=== PATIENT | male | born 1950 | race Caucasian/White ===

== ENCOUNTER 2019-02-03 10:13 | Inpatient (IN) | payer SELFPAY ==
[~2019-02-03] VITALS: Ht 167.6 cm; Wt 49.0 kg
[2019-02-03 11:25] LABS: CLARITY URINE CLOUDY (CLEAR); COLOR URINE YELLOW (YELLOW); KETONES URINE NEGATIVE (NEGATIVE); LEUKOCYTE ESTERASE URINE TRACE (NEGATIVE); NITRITE URINE NEGATIVE (NEGATIVE); OCCULT BLOOD URINE 3+ (NEGATIVE); PROTEIN URINE 3+ (NEGATIVE); SPECIFIC GRAVITY URINE 1.015 (1.005-1.030); UROBILINOGEN URINE 0.2 E.U./dL (0.2-1.0)
[2019-02-03 11:30] LABS: BG BASE EXCESS -7.5 mmol/L (-2.0-2.0); BG CARBOXYHEMOGLOBIN 0.3 % (0.5-1.5); BG DEOXYHEMOGLOBIN 3.9 % (0.0-5.0); BG FRACTION INSPIRED OXYGEN 21; BG METHEMOGLOBIN 0.3 % (0.0-1.5); BG OXYGEN SATURATION 96.1 % (92.0-98.5); BG OXYHEMOGLOBIN 95.5 % (94.0-97.0); BG PCO2 25.3 mmHg (35.0-45.0); BG PH 7.418 (7.350-7.450); BG PO2 89.5 mmHg (75.0-100.0); BG SAMPLE SITE RIGHT BRACHIAL; BG TOTAL HEMOGLOBIN 8.2 g/dL (12.0-18.0); BG VENT MODE ROOM AIR
[2019-02-03 11:32] LABS: BASOPHILS % 1.3 % (0.0-2.0); EOSINOPHILS % 0.9 % (0.0-5.0); HEMATOCRIT. 21.9 % (42.0-52.0); HEMOGLOBIN. 7.4 g/dL (14.0-18.0); LYMPHOCYTES % 12.4 % (20.0-50.0); MEAN CORPUSCULAR HEMOGLOBIN 32.5 pg (28.0-32.0); MEAN CORPUSCULAR VOLUME 95.9 fL (80.0-94.0); MONOCYTES % 7.2 % (2.0-8.0); NEUTROPHILS % 78.2 % (40.0-76.0); PLATELET 206 x1000/uL (130-400); RED BLOOD CELL COUNT 2.28 mill/uL (4.7-6.1); RED CELL DISTRIBUTION WIDTH 15.1 % (11.6-14.6)
[2019-02-03 11:39] LABS: CHLORIDE 110 mEq/L (98-107)
[2019-02-03 11:43] LABS: ETHANOL BLOOD < 10 mg/dL
[2019-02-03 11:48] LABS: CREATINE KINASE 59 IU/L (39-308)
[2019-02-03 12:09] LABS: OPIATES URINE SCREEN NEGATIVE (NEGATIVE); PHENCYCLIDINE URINE SCREEN NEGATIVE (NEGATIVE)
[2019-02-03 12:10] LABS: *AMPHETAMINES SCREEN URINE NEGATIVE (NEGATIVE); *BARBITURATES SCREEN URINE NEGATIVE (NEGATIVE); *COCAINE SCREEN URINE NEGATIVE (NEGATIVE); CANNABINOID URINE SCREEN NEGATIVE (NEGATIVE); METHADONE URINE SCREEN NEGATIVE (NEGATIVE)
[2019-02-03 12:12] LABS: *BENZODIAZEPINES SCREEN URINE NEGATIVE (NEGATIVE)
[2019-02-03] MEDS ORDERED: NA PHOS,M-B/NA PHOS,DI-BA ENEMA 118ML PR PRN (13:45)
[2019-02-03] MEDS ORDERED: IPRATROPIUM/ALBUTEROL 0.5-3(2.5)MG/3ML NEB INH PRN (13:45)
[2019-02-03] MEDS ORDERED: LORAZEPAM 2MG/ML CPJ IV PRN (13:45)
[2019-02-03] MEDS ORDERED: HYDROCODONE/ACETAMINOPHEN 5/325MG TABLET PO PRN (13:45)
[2019-02-03] MEDS ORDERED: GUAIFENESIN 200MG/10ML SUGAR FREE UDC PO PRN (13:45)
[2019-02-03] MEDS ORDERED: CLONIDINE 0.1MG TABLET PO PRN (13:45)
[2019-02-03] MEDS ORDERED: DIPHENHYDRAMINE 50MG/ML VIAL IV PRN (13:45)
[2019-02-03] MEDS ORDERED: MORPHINE SULFATE 2 MG/ML CPJ (NOT FOR IM USE) IV PRN (13:45)
[2019-02-03] MEDS ORDERED: ACETAMINOPHEN 325MG TABLET PO PRN (13:45)
[2019-02-03] MEDS ORDERED: ONDANSETRON HCL 4MG/2ML INJ IV PRN (13:45)
[2019-02-03 14:00] VITALS: BP 185/76
[2019-02-03 16:00] VITALS: BP 173/99
[2019-02-03] MEDS ORDERED: MAGNESIUM/ALUMINUM HYDROXIDE/SIMETHICONE 30ML UDC PO PRN (16:00)
[2019-02-03] MEDS ORDERED: DOCUSATE SODIUM 100MG CAPSULE PO PRN (17:00)
[2019-02-03] MEDS ORDERED: FUROSEMIDE 40MG/4ML VIAL IV SCH (17:15)
[2019-02-03] MEDS: FUROSEMIDE 40MG/4ML VIAL IVP SCH (17:45)
[2019-02-03] MEDS: POTASSIUM CHLORIDE 20MEQ TABLET SR PO SCH (17:56)
[2019-02-03] MEDS: AMLODIPINE 5MG TABLET PO SCH (17:57)
[2019-02-03 20:00] VITALS: BP 142/87
[2019-02-04] VITALS: BP 127/83
[2019-02-04 04:00] VITALS: BP 122/86
[2019-02-04 07:06] LABS: EOSINOPHILS % 2.6 % (0.0-5.0); HEMATOCRIT. 22.3 % (42.0-52.0); HEMOGLOBIN. 7.4 g/dL (14.0-18.0); LYMPHOCYTES % 14.2 % (20.0-50.0); MEAN CORPUSCULAR HEMOGLOBIN 32.5 pg (28.0-32.0); MEAN CORPUSCULAR VOLUME 97.5 fL (80.0-94.0); MEAN PLATELET VOLUME 8.8 fl (7.4-10.4); MONOCYTES % 8.6 % (2.0-8.0); NEUTROPHILS % 73.6 % (40.0-76.0); PLATELET 213 x1000/uL (130-400); RED BLOOD CELL COUNT 2.29 mill/uL (4.7-6.1); RED CELL DISTRIBUTION WIDTH 14.7 % (11.6-14.6)
[2019-02-04 07:40] LABS: CHLORIDE 110 mEq/L (98-107)
[2019-02-04 07:52] LABS: LDL CHOLESTEROL 85 mg/dL (5-100)
[2019-02-04 07:55] LABS: HDL CHOLESTEROL 40 mg/dL (40-59); T4 FREE 0.96 ng/dL (0.76-1.46)
[2019-02-04 08:00] VITALS: BP 153/85
[2019-02-04] MEDS: AMLODIPINE 5MG TABLET PO SCH (09:21)
[2019-02-04] MEDS: FUROSEMIDE 40MG/4ML VIAL IVP SCH (09:22)
[2019-02-04] MEDS: POTASSIUM CHLORIDE 20MEQ TABLET SR PO SCH (09:22)
[2019-02-04 12:00] VITALS: BP 116/59
[2019-02-04 13:22] LABS: HEPATITIS B SURFACE ANTIGEN NEGATIVE
[2019-02-04 16:00] VITALS: BP 128/67
[2019-02-04 19:45] VITALS: BP 141/76
[2019-02-05] VITALS (9 sets, daily range): BP systolic 123–141; BP diastolic 62–88
[2019-02-05 06:12] LABS: BASOPHILS % 1.1 % (0.0-2.0); EOSINOPHILS % 2.9 % (0.0-5.0); LYMPHOCYTES % 14.8 % (20.0-50.0); MEAN CORPUSCULAR HEMOGLOBIN 32.2 pg (28.0-32.0); MEAN CORPUSCULAR VOLUME 96.4 fL (80.0-94.0); MEAN PLATELET VOLUME 8.5 fl (7.4-10.4); MONOCYTES % 8.5 % (2.0-8.0); NEUTROPHILS % 72.7 % (40.0-76.0); PLATELET 183 x1000/uL (130-400); RED BLOOD CELL COUNT 2.17 mill/uL (4.7-6.1); RED CELL DISTRIBUTION WIDTH 14.8 % (11.6-14.6)
[2019-02-05 06:23] LABS: HEMATOCRIT. 20.9 % (42.0-52.0)
[2019-02-05] MEDS: POTASSIUM CHLORIDE 20MEQ TABLET SR PO SCH (09:24)
[2019-02-05] MEDS: FUROSEMIDE 40MG/4ML VIAL IVP SCH (09:24)
[2019-02-05] MEDS: AMLODIPINE 5MG TABLET PO SCH (09:33)
[2019-02-05] MEDS: CITRIC ACID/SODIUM CITRATE SOLN 30ML UDC PO SCH (16:57)
[2019-02-05 21:30] LABS: HEMATOCRIT 23.4 % (42.0-52.0); HEMOGLOBIN 8.1 g/dL (14.0-18.0)
[2019-02-06] VITALS: BP 133/66
[2019-02-06 04:00] VITALS: BP 136/67
[2019-02-06 07:38] LABS: BASOPHILS % 1.1 % (0.0-2.0); EOSINOPHILS % 1.7 % (0.0-5.0); HEMATOCRIT. 23.4 % (42.0-52.0); LYMPHOCYTES % 14.5 % (20.0-50.0); MEAN CORPUSCULAR HEMOGLOBIN 31.8 pg (28.0-32.0); MEAN CORPUSCULAR VOLUME 93.6 fL (80.0-94.0); MONOCYTES % 10.9 % (2.0-8.0); NEUTROPHILS % 71.8 % (40.0-76.0); PLATELET 193 x1000/uL (130-400); RED CELL DISTRIBUTION WIDTH 16.5 % (11.6-14.6)
[2019-02-06 08:00] VITALS: BP 101/83
[2019-02-06 12:00] VITALS: BP_SYST 136; BP_SYST 147; BP_DIAS 72; BP_DIAS 85
[2019-02-06] MEDS: AMLODIPINE 5MG TABLET PO SCH (13:25)
[2019-02-06] MEDS: FUROSEMIDE 40MG/4ML VIAL IVP SCH (13:25)
[2019-02-06] MEDS: POTASSIUM CHLORIDE 20MEQ TABLET SR PO SCH (13:26)
[2019-02-06] MEDS: CITRIC ACID/SODIUM CITRATE SOLN 30ML UDC PO SCH ×2 (13:36→17:58)
[2019-02-06 16:00] VITALS: BP 153/92
[2019-02-06 20:00] VITALS: BP 133/105
[2019-02-07] VITALS: BP 121/64
[2019-02-07 04:00] VITALS: BP 130/68
[2019-02-07 07:18] LABS: A/G RATIO 0.8 (0.7-1.7); ALPHA-1-GLOBULIN 0.3 g/dL (0.0-0.4); ALPHA-2-GLOBULIN 0.9 g/dL (0.4-1.0); BETA GLOBULIN 1.1 g/dL (0.7-1.3); GAMMA GLOBULINS 1.8 g/dL (0.4-1.8); M-SPIKE Not Observed g/dL (Not Observed)
[2019-02-07 08:00] VITALS: BP 154/88
[2019-02-07] MEDS: POTASSIUM CHLORIDE 20MEQ TABLET SR PO SCH (08:00)
[2019-02-07] MEDS: FUROSEMIDE 40MG/4ML VIAL IVP SCH (08:00)
[2019-02-07] MEDS: AMLODIPINE 5MG TABLET PO SCH (08:00)
[2019-02-07] MEDS: CITRIC ACID/SODIUM CITRATE SOLN 30ML UDC PO SCH (08:17)
[2019-02-07 09:06] LABS: COMPLEMENT C3 107 mg/dL (82-167)
[2019-02-07 12:00] VITALS: BP 154/81
[2019-02-07 14:23] VITALS: BP 154/81
[2019-02-07 17:11] LABS: ANTI-NUCLEAR ANTIBODIES DIRECT Negative (Negative)
== END 2019-02-07 16:01 | disposition home or self-care (01) | DRG 194 ==
LOC: ER 10:13 → 7WST 12:46 → ENRESERV 13:05
PROVIDERS: ADMIT Internal Medicine; ATTEND Internal Medicine
PROC: 30233N1 Transfusion of Nonautologous Red Blood Cells into Peripheral Vein, Percutaneous Approach (ICD-10-PCS; principal; 2019-02-05)
DX: I13.0 Hypertensive heart and chronic kidney disease with heart failure and stage 1 through stage 4 chronic kidney disease, or unspecified chronic kidney disease (principal); N17.9 Acute kidney failure, unspecified; E46 Unspecified protein-calorie malnutrition; E87.2 Acidosis; I50.9 Heart failure, unspecified; N18.9 Chronic kidney disease, unspecified; D63.1 Anemia in chronic kidney disease; R80.9 Proteinuria, unspecified; R26.9 Unspecified abnormalities of gait and mobility; R31.9 Hematuria, unspecified; Z87.891 Personal history of nicotine dependence; Z79.899 Other long term (current) drug therapy; Z68.1 Body mass index [BMI] 19.9 or less, adult
CPT/HCPCS: 36415; 36600; 71045; 76770; 80048; 80061; 80305; 80307; 80320; 80329; 82140; 82375; 82550; 82570; 82575; 82805; 83036; 83540; 83550; 83605; 83880; 84133; 84155; 84165; 84300; 84439; 84443; 84484; 85014; 85018; 86038; 86160; 86592; 86803; 86850; 86900; 86920; 87340; 93005; 93306; 93970; 96374; 99285; A6261; J1940; J2060; P9016; G0480

== ENCOUNTER 2019-02-07 23:23 | Emergency (ER) | payer MEDICAID ==
[~2019-02-07] VITALS: Ht 167.6 cm; Wt 59.0 kg
[2019-02-08 00:55] VITALS: BP 140/61
== END 2019-02-08 01:31 | disposition home or self-care (01) ==
LOC: ER 23:23
DX: Z00.00 Encounter for general adult medical examination without abnormal findings (principal); I11.0 Hypertensive heart disease with heart failure; I50.9 Heart failure, unspecified; Z87.891 Personal history of nicotine dependence; Z98.890 Other specified postprocedural states
CPT/HCPCS: 99281

== ENCOUNTER 2019-02-08 09:46 | Inpatient (IN) | payer MEDICAID, OTHER ==
[~2019-02-08] VITALS: Ht 153.7 cm; Wt 54.0 kg
[2019-02-08] MEDS ORDERED: SODIUM CHLORIDE 0.9% 1,000 ML IV ONE (11:20)
[2019-02-08 11:53] LABS: BASOPHILS % 1.6 % (0.0-2.0); EOSINOPHILS % 0.7 % (0.0-5.0); HEMATOCRIT. 24.6 % (42.0-52.0); HEMOGLOBIN. 8.2 g/dL (14.0-18.0); LYMPHOCYTES % 13.5 % (20.0-50.0); MEAN CORPUSCULAR HEMOGLOBIN 31.3 pg (28.0-32.0); MEAN PLATELET VOLUME 8.4 fl (7.4-10.4); NEUTROPHILS % 71.2 % (40.0-76.0); PLATELET 206 x1000/uL (130-400); RED BLOOD CELL COUNT 2.62 mill/uL (4.7-6.1); RED CELL DISTRIBUTION WIDTH 15.7 % (11.6-14.6)
[2019-02-08 12:01] LABS: CHLORIDE 109 mEq/L (98-107)
[2019-02-08 12:03] LABS: PROTHROMBIN TIME 10.7 sec (9.6-11.0)
[2019-02-08] MEDS ORDERED: ALBUTEROL (0.083%) 2.5MG/3ML NEB HHN STA (12:12)
[2019-02-08] MEDS ORDERED: SODIUM POLYSTYRENE SULFONATE 15 G/60 ML BOT PO ONE (12:15)
[2019-02-08] MEDS ORDERED: SODIUM BICARBONATE 8.4% 1 MEQ/ML 50ML SYR IV ONE (12:15)
[2019-02-08] MEDS ORDERED: ASPIRIN 81MG TABLET PO ONE (12:15)
[2019-02-08] MEDS ORDERED: IPRATROPIUM/ALBUTEROL 0.5-3(2.5)MG/3ML NEB INH PRN (14:00)
[2019-02-08] MEDS ORDERED: DOCUSATE SODIUM 100MG CAPSULE PO PRN (14:00)
[2019-02-08] MEDS ORDERED: GUAIFENESIN 200MG/10ML SUGAR FREE UDC PO PRN (14:00)
[2019-02-08] MEDS ORDERED: MAGNESIUM/ALUMINUM HYDROXIDE/SIMETHICONE 30ML UDC PO PRN (14:00)
[2019-02-08] MEDS ORDERED: NA PHOS,M-B/NA PHOS,DI-BA ENEMA 118ML PR PRN (14:00)
[2019-02-08] MEDS ORDERED: ONDANSETRON HCL 4MG/2ML INJ IV PRN (14:00)
[2019-02-08] MEDS ORDERED: LORAZEPAM 2MG/ML CPJ IV PRN (14:00)
[2019-02-08] MEDS ORDERED: DIPHENHYDRAMINE 50MG/ML VIAL IV PRN (14:00)
[2019-02-08] MEDS ORDERED: CLONIDINE 0.1MG TABLET PO PRN (14:00)
[2019-02-08] MEDS ORDERED: ACETAMINOPHEN 325MG TABLET PO PRN (14:00)
[2019-02-08 15:09] LABS: CHLORIDE 108 mEq/L (98-107)
[2019-02-08] MEDS ORDERED: HYDROCODONE/ACETAMINOPHEN 5/325MG TABLET PO PRN (17:00)
[2019-02-08 18:00] VITALS: BP 135/65
[2019-02-08 18:15] VITALS: BP 135/65
[2019-02-08 20:24] VITALS: BP 103/78
[2019-02-08] MEDS: SODIUM CHLORIDE 0.45% 1,000 ML IV SCH (20:35)
[2019-02-08] MEDS ORDERED: PNEUMOCOCCAL 23-VAL P-SAC VAC 0.5 ML IM ONE (21:00)
[2019-02-09] VITALS (9 sets, daily range): BP systolic 110–147; BP diastolic 68–91
[2019-02-09 07:03] LABS: EOSINOPHILS % 0.8 % (0.0-5.0); HEMOGLOBIN. 7.2 g/dL (14.0-18.0); LYMPHOCYTES % 11.6 % (20.0-50.0); MEAN PLATELET VOLUME 8.6 fl (7.4-10.4); MONOCYTES % 11.4 % (2.0-8.0); NEUTROPHILS % 75.2 % (40.0-76.0); PLATELET 167 x1000/uL (130-400); RED BLOOD CELL COUNT 2.26 mill/uL (4.7-6.1); RED CELL DISTRIBUTION WIDTH 15.7 % (11.6-14.6)
[2019-02-09 07:40] LABS: CHLORIDE 111 mEq/L (98-107)
[2019-02-09 08:00] LABS: LDL CHOLESTEROL 59 mg/dL (5-100)
[2019-02-09 08:01] LABS: HDL CHOLESTEROL 35 mg/dL (40-59)
[2019-02-09 11:11] LABS: CREATINE KINASE 90 IU/L (39-308)
[2019-02-09] MEDS: SODIUM CHLORIDE 0.45% 1,000 ML IV SCH (14:48)
[2019-02-10] VITALS (7 sets, daily range): BP systolic 130–148; BP diastolic 69–86
[2019-02-10 00:18] LABS: CLARITY URINE CLEAR (CLEAR); COLOR URINE YELLOW (YELLOW); KETONES URINE NEGATIVE (NEGATIVE); LEUKOCYTE ESTERASE URINE NEGATIVE (NEGATIVE); NITRITE URINE NEGATIVE (NEGATIVE); OCCULT BLOOD URINE 3+ (NEGATIVE); PH URINE 7.5 (4.5-8.0); PROTEIN URINE 2+ (NEGATIVE); SPECIFIC GRAVITY URINE 1.013 (1.005-1.030); UROBILINOGEN URINE 0.2 E.U./dL (0.2-1.0)
[2019-02-10] MEDS: SODIUM CHLORIDE 0.45% 1,000 ML IV SCH (05:45)
[2019-02-10 06:45] LABS: BASOPHILS % 1.2 % (0.0-2.0); EOSINOPHILS % 2.3 % (0.0-5.0); HEMOGLOBIN. 8.4 g/dL (14.0-18.0); LYMPHOCYTES % 16.1 % (20.0-50.0); MEAN CORPUSCULAR HEMOGLOBIN 31.4 pg (28.0-32.0); MEAN PLATELET VOLUME 8.8 fl (7.4-10.4); MONOCYTES % 10.2 % (2.0-8.0); NEUTROPHILS % 70.2 % (40.0-76.0); PLATELET 188 x1000/uL (130-400); RED BLOOD CELL COUNT 2.69 mill/uL (4.7-6.1); RED CELL DISTRIBUTION WIDTH 15.4 % (11.6-14.6)
[2019-02-11] VITALS: BP 141/80
[2019-02-11] MEDS: SODIUM CHLORIDE 0.45% 1,000 ML IV SCH (02:00)
[2019-02-11 04:00] VITALS: BP 118/79
[2019-02-11 08:20] LABS: BASOPHILS % 1.3 % (0.0-2.0); EOSINOPHILS % 2.9 % (0.0-5.0); HEMATOCRIT. 24.3 % (42.0-52.0); HEMOGLOBIN. 8.1 g/dL (14.0-18.0); LYMPHOCYTES % 14.7 % (20.0-50.0); MEAN CORPUSCULAR HEMOGLOBIN 31.3 pg (28.0-32.0); MEAN CORPUSCULAR VOLUME 93.7 fL (80.0-94.0); MEAN PLATELET VOLUME 8.9 fl (7.4-10.4); MONOCYTES % 8.8 % (2.0-8.0); NEUTROPHILS % 72.3 % (40.0-76.0); PLATELET 195 x1000/uL (130-400); RED BLOOD CELL COUNT 2.59 mill/uL (4.7-6.1); RED CELL DISTRIBUTION WIDTH 15.3 % (11.6-14.6)
[2019-02-11 08:21] VITALS: BP 150/72
[2019-02-11 11:46] VITALS: BP 150/72
[2019-02-11 12:00] VITALS: BP 130/70
== END 2019-02-11 14:03 | disposition home or self-care (01) | DRG 469 ==
LOC: ER 09:46 → EDBEDREQ 12:43 → 6WST 13:33 → ENRESERV 15:16 → 6WST 17:49
PROVIDERS: ADMIT Internal Medicine; ATTEND Internal Medicine
PROC: 30233N1 Transfusion of Nonautologous Red Blood Cells into Peripheral Vein, Percutaneous Approach (ICD-10-PCS; principal; 2019-02-09)
DX: N17.9 Acute kidney failure, unspecified (principal); I13.0 Hypertensive heart and chronic kidney disease with heart failure and stage 1 through stage 4 chronic kidney disease, or unspecified chronic kidney disease; F03.90 Unspecified dementia, unspecified severity, without behavioral disturbance, psychotic disturbance, mood disturbance, and anxiety; I50.9 Heart failure, unspecified; D64.9 Anemia, unspecified; N18.9 Chronic kidney disease, unspecified; Z91.83 Wandering in diseases classified elsewhere
CPT/HCPCS: 36415; 71045; 80048; 80061; 82550; 83880; 84484; 86850; 86900; 86920; 93005; 94640; 96374; 97110; 97116; 97162; 99285; J3490; J7030; J7050; J7611; P9016; A4315